=== PATIENT | male | born 1935 | race Two or more races ===

== ENCOUNTER 2016-12-25 06:09 | Inpatient (IN) | payer OTHER ==
[~2016-12-25] VITALS: Ht 172.7 cm; Wt 71.3 kg
[2016-12-25 06:56] LABS: BASOPHIL % 0.7 % (0-2); PLATELET COUNT 375 x10^3mcL (130-400)
[2016-12-25 06:58] LABS: RED CELL DISTRIBUTION WIDTH 14.7 % (11.5-14.5)
[2016-12-25 07:01] LABS: CARBON DIOXIDE 29.4 mmol/L (21-32); CHLORIDE SERUM 102 mmol/L (98-107); CREATININE SERUM 1.2 mg/dL (0.7-1.3); GLUCOSE SERUM 94 mg/dL (74-106); POTASSIUM SERUM 3.7 mmol/L (3.5-5.1); SODIUM SERUM 136 mmol/L (136-145)
[2016-12-25 07:12] LABS: ALKALINE PHOSPHATASE 97 U/L (46-116); ALT/SGPT 11 U/L (16-63); AST/SGOT 15 U/L (15-37); BILIRUBIN TOTAL 0.6 mg/dL (0.20-1.00); CHOLESTEROL 199 mg/dL (<200); HDL CHOLESTEROL 60 mg/dL (40-60); LIPASE 157 IU/L (73-393); MAGNESIUM 1.7 mg/dL (1.8-2.4); PHOSPHOROUS 2.9 mg/dL (2.5-4.9); T4(THYROXINE) 9.7 ug/dL (4.7-13.3); TOTAL PROTEIN, SERUM 7.2 g/dL (6.4-8.2)
[2016-12-25 07:13] LABS: ALBUMIN 3.1 g/dL (3.4-5.0)
[2016-12-25 07:54] LABS: microscopic required? NO
[2016-12-25] MEDS ORDERED: FINASTERIDE5 M1 PO (07:56)
[2016-12-25] MEDS ORDERED: COZAAR50 M1 PO (07:57)
[2016-12-25] MEDS ORDERED: TRAMADOL HCL50 MG PO (07:57)
[2016-12-25] MEDS ORDERED: MASON NATURAL1000 IU PO (07:58)
[2016-12-25] MEDS ORDERED: LEVOTHYROXIN0.025 M2 PO (07:58)
[2016-12-25] MEDS ORDERED: PROCTOCREAM-HC2.5% TOP (07:58)
[2016-12-25 07:59] LABS: urine erythrocyte NEGATIVE (NEGATIVE)
[2016-12-25] MEDS ORDERED: CITALOPRAM HYDR20 M1 PO (07:59)
[2016-12-25] MEDS ORDERED: VITAMIN B121000 MCG PO (08:00)
[2016-12-25] MEDS ORDERED: FLOMAX0.4 MG PO (08:00)
[2016-12-25] MEDS ORDERED: FOLIC ACID0.8 M2 PO (08:01)
[2016-12-25] MEDS ORDERED: AZATHIOPRINE50 MG PO (08:01)
[2016-12-25] MEDS ORDERED: ASACOL HD800 M1 PO (08:03)
[2016-12-25 12:31] LABS: CHOLESTEROL/HDL RATIO 3.8
[2016-12-25 12:38] VITALS: BP 155/63
[2016-12-25 12:40] LABS: FREE T4 1.3 ng/dL (0.76-1.46); FREE THYROXINE INDEX 3.6 ug/dL (1.4-4.5); T3 TOTAL 1.15 ng/mL; T4(THYROXINE) 10.6 ug/dL (4.7-13.3)
[2016-12-25 16:30] VITALS: BP 150/65
[2016-12-25 20:37] VITALS: BP 124/63
[2016-12-26 05:55] VITALS: BP 139/69
[2016-12-26 05:56] LABS: BASOPHIL % 0.1 % (0-2); PLATELET COUNT 311 x10^3mcL (130-400)
[2016-12-26 06:25] LABS: CALCIUM 8.3 mg/dL (8.5-10.1); CARBON DIOXIDE 27.1 mmol/L (21-32); CHLORIDE SERUM 103 mmol/L (98-107); CREATININE SERUM 1.1 mg/dL (0.7-1.3); GLUCOSE SERUM 98 mg/dL (74-106); MAGNESIUM 1.9 mg/dL (1.8-2.4); PHOSPHOROUS 3.7 mg/dL (2.5-4.9); SODIUM SERUM 134 mmol/L (136-145)
[2016-12-26 07:10] LABS: RED CELL DISTRIBUTION WIDTH 14.6 % (11.5-14.5)
[2016-12-26 09:37] VITALS: BP 152/72
[2016-12-26 13:05] VITALS: BP 133/61
[2016-12-26 17:07] VITALS: BP 134/73
[2016-12-26 19:35] VITALS: BP 134/62
[2016-12-27 05:52] VITALS: BP 143/70
[2016-12-27 06:13] LABS: BASOPHIL % 0.4 % (0-2); PLATELET COUNT 290 x10^3mcL (130-400)
[2016-12-27 06:51] LABS: RED CELL DISTRIBUTION WIDTH 14.7 % (11.5-14.5)
[2016-12-27 06:54] LABS: CALCIUM 8.1 mg/dL (8.5-10.1); CARBON DIOXIDE 26.3 mmol/L (21-32); CHLORIDE SERUM 105 mmol/L (98-107); GLUCOSE SERUM 91 mg/dL (74-106); MAGNESIUM 1.6 mg/dL (1.8-2.4); PHOSPHOROUS 2.7 mg/dL (2.5-4.9); POTASSIUM SERUM 3.3 mmol/L (3.5-5.1); SODIUM SERUM 140 mmol/L (136-145)
[2016-12-27 06:58] LABS: ALBUMIN 2.4 g/dL (3.4-5.0)
[2016-12-27 08:45] VITALS: BP 146/79
[2016-12-27] MEDS ORDERED: ACETAMINOPHEN-H1 TA1 PO (11:28)
[2016-12-27] MEDS ORDERED: KEFLEX500 M1 PO (11:30)
[2016-12-27] MEDS ORDERED: LAC PO (11:31)
[2016-12-27 13:31] VITALS: BP 119/66
[2016-12-27 13:35] VITALS: BP 119/66
[2016-12-27] MEDS ORDERED: COLACE100 MG PO (13:36)
== END 2016-12-27 17:00 | disposition home or self-care (01) | DRG 341 ==
LOC: ED 06:09 → DU 11:34 → MU 12-27 07:08
PROVIDERS: Emergency Medicine; Family Medicine; Surgery; ADMIT Family Medicine
PROC: 0DTJ4ZZ Resection of Appendix, Percutaneous Endoscopic Approach (ICD-10-PCS; principal; 2016-12-25 14:30)
DX: K35.80 Unspecified acute appendicitis (principal); E43 Unspecified severe protein-calorie malnutrition; K50.90 Crohn's disease, unspecified, without complications; I42.9 Cardiomyopathy, unspecified; I10 Essential (primary) hypertension; R73.03 Prediabetes; E83.42 Hypomagnesemia; E78.5 Hyperlipidemia, unspecified; F32.9 Major depressive disorder, single episode, unspecified; E03.9 Hypothyroidism, unspecified; N40.0 Benign prostatic hyperplasia without lower urinary tract symptoms; I27.2 Other secondary pulmonary hypertension
CPT/HCPCS: 82962; 83880; 84439; 94150; J0295; J1170; J2405; J3010; J3475; J3490; J7030; J7500; Q0177; Q9966; Q9967